=== PATIENT | male | born 1985 | race Caucasian/White ===

== ENCOUNTER → 2018-07-01 | Outpatient (CLI) | payer OTHER ==
[~2018-07-01] MED LIST: IOPAMIDOL (ISOVUE 370) 75 ML BTL IV ONE
== END ==
LOC: FIMAGING 08:28
PROVIDERS: ATTEND Nurse Practitioner Family
DX: R06.02 Shortness of breath (principal); R07.9 Chest pain, unspecified
CPT/HCPCS: Q9967